=== PATIENT | female | born 1985 | race Caucasian/White ===

== ENCOUNTER 2016-11-19 19:57 | Emergency (ER) | payer OTHER ==
[2016-11-19 20:05] VITALS: BP 118/80
--- NOTE | 2016-11-19 20:08 | ED Physician Documentation ---
PD HPI LOWER EXT INJURY - Stated complaint Stated Complaint: LT ANKLE/LEG PX - Chief complaint Chief Complaint: Ext Problem - History obtained from History obtained from: Patient - History of Present Illness PD HPI LOW EXT INJURY LOCATION: Left, Ankle Type of injury: Twist Where injury occurred: Home Timing - onset: Enter time (19:00), Today Timing - details: Abrupt onset Pain level now: 6 Improved by: Rest Worsened by: Moving, Palpating Associated symptoms: Swelling Similar symptoms before: Has not had sx before Recently seen: Not recently seen - Additional information Additional information: c/o left ankle pain, sudden onset 7 PM tonight when she tripped in her garage. Exacerbated with palpation, weight-bearing Review of Systems Musculoskeletal: reports: Joint pain (left ankle), Joint swelling, Pain with weight bearing Neurologic: denies: Focal weakness, Numbness PD PAST MEDICAL HISTORY - Past Medical History Past Medical History: No - Past Surgical History Past Surgical History: No - Present Medications Home Medications: Ambulatory Orders Medication Instructions Recorded Confirmed HYDROcod/ACETAM 5/325 [[place] 5/325] 1 - 2 ea PO Q6H PRN #15 tablet 11/19/16 Loratadine [Claritin] 10 mg DAILY PRN 11/19/16 11/19/16 Multivitamin [Multivitamins] 1 tab DAILY 11/19/16 11/19/16 - Allergies Allergies/Adverse Reactions: Allergies Allergy/AdvReac Type Severity Reaction Status Date / Time No Known Drug Allergies Allergy Verified 11/19/16 20:06 - Social History Does the pt smoke?: No Smoking Status: Never smoker PD ED PE NORMAL - Vitals Vital signs reviewed: Yes - General General: Alert and oriented X 3, No acute distress, Well developed/nourished - Neuro Neuro: No motor deficit, No sensory deficit PD ED PE EXPANDED - Extremities Extremities: Tenderness, Limited ROM, Swelling, Bruising, Left ankle ( predominantly lateral malleolus) Results - Vitals Vitals: Vital Signs - 24 hr 11/19/16 20:00 Temperature 37.1 C Heart Rate 100 Respiratory 18 Rate Blood Pressure 118/80 O2 Saturation 99 Oxygen O2 Source Room air - Rads (name of study) left ankle xrays Radiology: Prelim report reviewed, See rad report Procedures - Splint (location) Lower extremity left Splint applied by: Tech Type of splint: Ankle airsplint Other: Patient tolerated well, No complications, Neurovascular intact, Good alignment, Crutches provided PD MEDICAL DECISION MAKING - ED course Complexity details: reviewed results, re-evaluated patient, considered differential, d/w patient Departure - Departure Disposition: 01 Home, Self Care Clinical Impression: Ankle sprain Condition: Good Instructions: ED Sprain Ankle W X Ray, ED Crutch Walking Follow-Up: [facility] LUCIA [Primary Care Provider] - Dario Marti MD [Provider Admit Priv/Credential] - Prescriptions: HYDROcod/ACETAM 5/325 [[place] 5/325] 1 - 2 ea PO Q6H PRN #15 tablet PRN Reason: Pain Discharge Date/Time: 11/19/16 21:40
--- NOTE | 2016-11-19 21:15 | XRAY Preliminary Report ---
Exam: XR Ankle 3 View LT IMPRESSION: Moderately lateral soft tissue swelling without acute osseous abnormality demonstrated. [facility] SITE ID: [id number]
--- NOTE | 2016-11-19 21:18 | XRAY Report ---
EXAM: LEFT ANKLE RADIOGRAPHY EXAM DATE: 11/19/2016 08:46 PM. CLINICAL HISTORY: Injury, swelling. COMPARISON: None. TECHNIQUE: 3 views. FINDINGS: Bones: No acute displaced fractures or suspicious bony lesion. Joints: No subluxations. Soft Tissues: Moderate lateral soft tissue swelling. IMPRESSION: Moderately lateral soft tissue swelling without acute osseous abnormality demonstrated. [facility] Referring Provider Line: [phone] SITE ID: [id number]
[2016-11-19] MEDS ORDERED: HYDROcod/ACETAM 5/325 MG TABLET PO STA (21:27)
[2016-11-19] MEDS ORDERED: HYDROcod/ACETAM 5/325 MG TABLET ONE (21:28)
== END 2016-11-19 21:40 | disposition home or self-care (01) ==
LOC: ED 19:57
DX: S93.402A Sprain of unspecified ligament of left ankle, initial encounter (principal); W01.0XXA Fall on same level from slipping, tripping and stumbling without subsequent striking against object, initial encounter; Y92.008 Other place in unspecified non-institutional (private) residence as the place of occurrence of the external cause
CPT/HCPCS: 73610; 99283; A9270

== ENCOUNTER 2017-09-03 21:19 | Emergency (ER) | payer OTHER ==
[2017-09-03] MEDS ORDERED: predniSONE 20 MG TABLET PO STA (21:48)
--- NOTE | 2017-09-03 21:51 | ED Physician Documentation ---
PD HPI URI - Stated complaint Stated Complaint: BILATERAL EAR PX - Chief complaint Chief Complaint: Heent - History obtained from History obtained from: Patient - History of Present Illness Timing - onset: Other (Sick for about 2 weeks with nasal congestion, sinus pressure, and on and off ear popping and pressure which is generally getting worse bilaterally. No fevers.) Review of Systems Constitutional: denies: Fever, Chills, Fatigue Ears: reports: Ear pain. denies: Loss of hearing, Drainage/discharge Nose: reports: Rhinorrhea / runny nose, Congestion, Sinus pressure / pain Throat: denies: Sore throat PD PAST MEDICAL HISTORY - Past Medical History Past Medical History: Yes GI: Other Other Past Medical History: Celiac disease - Past Surgical History Past Surgical History: No - Present Medications Home Medications: Ambulatory Orders Medication Instructions Recorded Confirmed HYDROcod/ACETAM 5/325 [[place] 5/325] 1 - 2 ea PO Q6H PRN #15 tablet 11/19/16 Loratadine [Claritin] 10 mg DAILY PRN 11/19/16 11/19/16 Multivitamin [Multivitamins] 1 tab DAILY 11/19/16 11/19/16 Amox/Clav 875/125 [Augmentin] 1 each PO Q12H #20 tablet 09/03/17 Guaifenesin/Pseudoephedrne HCl 1 each PO BID PRN #20 tab.er.12h 09/03/17 [Mucinex D ER 600-60 mg Tablet] predniSONE [Deltasone] 60 mg PO DAILY 5 Days tablet 09/03/17 - Allergies Allergies/Adverse Reactions: Allergies Allergy/AdvReac Type Severity Reaction Status Date / Time gluten Allergy Cramps Verified 09/03/17 21:34 latex Allergy Rash Verified 09/03/17 21:37 pineapple Allergy Anaphylaxis Verified 09/03/17 21:35 coconut AdvReac Rash Verified 09/03/17 21:36 - Social History Does the pt smoke?: No Smoking Status: Never smoker Does the pt drink ETOH?: Yes Does the pt have substance abuse?: No - Immunizations Immunizations are current?: Yes PD ED PE NORMAL - Vitals Vital signs reviewed: Yes - General General: Alert and oriented X 3, No acute distress - HEENT HEENT: PERRL, EOMI, Ears normal, Moist mucous membranes, Pharynx benign - Neck Neck: Supple, no meningeal sign, No bony TTP - Cardiac Cardiac: RRR, No murmur - Respiratory Respiratory: No respiratory distress, Clear bilaterally - Abdomen Abdomen: Non tender - Derm Derm: No rash - Neuro Neuro: Alert and oriented X 3, Normal speech Results - Vitals Vitals: Vital Signs - 24 hr 09/03/17 21:29 Temperature 36.6 C Heart Rate 74 Respiratory 18 Rate Blood Pressure 136/95 H O2 Saturation 100 Oxygen O2 Source Room air PD MEDICAL DECISION MAKING - ED course ED course: TMs are normal, seems like a sinus infection but she really does not have any physical findings so [id number] prescription of for antibiotics was given. Departure - Departure Disposition: Home, Self Care Clinical Impression: Sinusitis Qualifiers: Sinusitis location: maxillary Chronicity: acute Recurrence: non-recurrent Qualified Code(s): J01.00 - Acute maxillary sinusitis, unspecified Condition: Good Record reviewed to determine appropriate education?: Yes Instructions: ED Sinusitis Abx Tx Prescriptions: Amox/Clav 875/125 [Augmentin] 1 each PO Q12H #20 tablet Guaifenesin/Pseudoephedrne HCl [Mucinex D ER 600-60 mg Tablet] 1 each PO BID PRN #20 tab.er.12h PRN Reason: congestion predniSONE [Deltasone] 60 mg PO DAILY 5 Days tablet Comments: You can start the antibiotics in a few days if not improved with the steroids and decongestants. Follow-up with your doctor in 1 week regardless. Return if worse. Your blood pressure was elevated today on check into the emergency department. This does not mean that you have hypertension, it is a common phenomenon to come to the emergency department and have elevated blood pressure. I recommend that you see your primary care physician within the week to have it rechecked when you are feeling better.
[2017-09-03 22:23] VITALS: BP 132/92
[2017-09-03] MEDS ORDERED: predniSONE 20 MG TABLET ONE (23:06)
== END 2017-09-03 22:59 | disposition home or self-care (01) ==
LOC: ED 21:19
DX: J01.00 Acute maxillary sinusitis, unspecified (principal); R03.0 Elevated blood-pressure reading, without diagnosis of hypertension
CPT/HCPCS: 99283; J7512

== ENCOUNTER 2017-09-23 16:56 | Emergency (ER) | payer OTHER ==
[2017-09-23 18:12] LABS: BILIRUBIN,URINE NEGATIVE (NEGATIVE); GLUCOSE, URINE (UA) NEGATIVE (NEGATIVE); KETONES,URINE (UA) NEGATIVE (NEGATIVE); LEUKOCYTE ESTERASE, URINE NEGATIVE (NEGATIVE); NITRITE,URINE NEGATIVE (NEGATIVE); OCCULT BLOOD,URINE MODERATE (NEGATIVE); PROTEIN,URINE NEGATIVE (NEGATIVE); UROBILINOGEN,URINE 0.2 (NORMAL) E.U./dL (NORMAL)
--- NOTE | 2017-09-23 18:48 | ED Physician Documentation ---
PD HPI HEAD INJURY - Stated complaint Stated Complaint: HD PX - Chief complaint Chief Complaint: Neuro - History obtained from History obtained from: Patient - History of Present Illness Mechanism of head injury: Other (Hit in head by a soccer ball, left frontal area last night with persistent and severe headaches. No loss of consciousness. Recently had a sinus infection and thinks that might be flaring up to because of the facial pressure. No other injuries. No vomiting.) Review of Systems Constitutional: denies: Fever, Chills GI: denies: Abdominal Pain, Nausea : reports: LMP (current). denies: Now EGA PD PAST MEDICAL HISTORY - Past Medical History GI: Other - Past Surgical History Past Surgical History: No - Present Medications Home Medications: Ambulatory Orders Medication Instructions Recorded Confirmed HYDROcod/ACETAM 5/325 [[place] 5/325] 1 - 2 ea PO Q6H PRN #15 tablet 11/19/16 Loratadine [Claritin] 10 mg DAILY PRN 11/19/16 11/19/16 Multivitamin [Multivitamins] 1 tab DAILY 11/19/16 11/19/16 Amox/Clav 875/125 [Augmentin] 1 each PO Q12H #20 tablet 09/03/17 Guaifenesin/Pseudoephedrne HCl 1 each PO BID PRN #20 tab.er.12h 09/03/17 [Mucinex D ER 600-60 mg Tablet] predniSONE [Deltasone] 60 mg PO DAILY 5 Days tablet 09/03/17 HYDROcod/ACETAM 5/325 [[place] 5/325] 1 - 2 ea PO Q6H PRN #10 tablet 09/23/17 - Allergies Allergies/Adverse Reactions: Allergies Allergy/AdvReac Type Severity Reaction Status Date / Time gluten Allergy Cramps Verified 09/03/17 21:34 latex Allergy Rash Verified 09/03/17 21:37 pineapple Allergy Anaphylaxis Verified 09/03/17 21:35 coconut AdvReac Rash Verified 09/03/17 21:36 - Social History Does the pt smoke?: No Smoking Status: Never smoker Does the pt drink ETOH?: Yes Does the pt have substance abuse?: No - Immunizations Immunizations are current?: Yes PD ED PE NORMAL - Vitals Vital signs reviewed: Yes - General General: Alert and oriented X 3, No acute distress - HEENT HEENT: PERRL, EOMI, Ears normal, Pharynx benign - Neck Neck: Supple, no meningeal sign, No bony TTP - Neuro Neuro: Alert and oriented X 3, Normal speech - Psych Psych: Normal mood, Normal affect Results - Vitals Vitals: Vital Signs - 24 hr 09/23/17 17:21 Temperature 35.9 C L Heart Rate 70 Respiratory 20 Rate Blood Pressure 121/73 O2 Saturation 100 Oxygen O2 Source Room air - Labs Labs: Laboratory Tests 09/23/17 17:55 Urine Color YELLOW Urine Clarity HAZY Urine pH 6.0 Ur Specific [place] >=1.030 H Urine Protein NEGATIVE Urine Glucose (UA) NEGATIVE Urine Ketones NEGATIVE Urine Occult Blood MODERATE H Urine Nitrite NEGATIVE Urine Bilirubin NEGATIVE Urine Urobilinogen 0.2 (NORMAL) Ur Leukocyte Esterase NEGATIVE Urine RBC 6-10 H Urine WBC 0-3 Ur Squamous Epith Cells MOD Squamous H Urine Bacteria Few Ur Microscopic Review INDICATED Urine Culture Comments NOT INDICATED Urine HCG, Qual NEGATIVE Departure - Departure Disposition: 01 Home, Self Care Clinical Impression: Concussion Qualifiers: Encounter type: initial encounter Loss of consciousness presence/duration: without LOC Qualified Code(s): S06.0X0A - Concussion without loss of consciousness, initial encounter Condition: Good Record reviewed to determine appropriate education?: Yes Instructions: ED Head Injury Closed Prescriptions: HYDROcod/ACETAM 5/325 [[place] 5/325] 1 - 2 ea PO Q6H PRN #10 tablet PRN Reason: Pain Comments: Call your doctor to arrange a follow-up appointment, make the next available appointment. In the interim, return anytime if worse or if new symptoms develop.
[2017-09-23 18:59] LABS: CLARITY,URINE HAZY (CLEAR); HCG UR QUAL NEGATIVE
[2017-09-23 19:00] LABS: BACTERIA,URINE Few /HPF (None Seen); SQUAMOUS EPITHELIAL CELL,UR MOD Squamous (<= Few)
--- NOTE | 2017-09-23 19:34 | CT Preliminary Report ---
Exam: CT HEAD W/O IMPRESSION: Normal head CT. [facility] SITE ID: [id number]
[2017-09-23 20:07] VITALS: BP 122/84
--- NOTE | 2017-09-23 20:16 | CT Report ---
EXAM: CT HEAD EXAM DATE: 09/23/2017 07:05 PM. CLINICAL HISTORY: Headache after injury. COMPARISON: None. TECHNIQUE: Multiaxial CT images were obtained from the foramen magnum to the vertex. Reformats: Coron al. IV contrast: None. In accordance with CT protocol optimization, one or more of the following dose reduction techniques w ere utilized for this exam: automated exposure control, adjustment of mA and/or KV based on patient s ize, or use of iterative reconstructive technique. FINDINGS: Parenchyma: No intraparenchymal hemorrhage. No evidence of mass, midline shift, or CT findings of inf arction. Hu-white differentiation is distinct. Extraaxial Spaces: Normal for age. No subdural or epidural collections identified. Ventricles: Normal in size and position. Sinuses and Orbits: Imaged paranasal sinuses, orbits, and mastoids show no significant abnormality. Bones: No evidence of fracture or calvarial defect. Other: None. IMPRESSION: Normal head CT. [facility] Referring Provider Line: [phone] SITE ID: [id number]
== END 2017-09-23 20:07 | disposition home or self-care (01) ==
LOC: ED 16:56
DX: S06.0X0A Concussion without loss of consciousness, initial encounter (principal); W21.02XA Struck by soccer ball, initial encounter; Y93.66 Activity, soccer
CPT/HCPCS: 70450; 81001; 81003; 81025; 87086; 99283

== ENCOUNTER 2018-01-12 21:49 | Emergency (ER) | payer OTHER ==
[2018-01-12] MEDS ORDERED: BUPIVACAINE 0.5% PF 10 ML VIAL SUBQ STA (22:12)
--- NOTE | 2018-01-12 22:59 | ED Physician Documentation ---
PD HPI HEADACHE - Stated complaint Stated Complaint: NUMBNESS ON LT SIDE OF FACE/MIGRAINE - Chief complaint Chief Complaint: Neuro - History obtained from History obtained from: Patient, Family (daughter) - History of Present Illness Timing - onset: Chronic Quality: Throbbing, Aching Associated symptoms: Nausea. No: Fever, Stiff neck, Vomiting, Weakness, Syncope , Seizure, Vision changes - Additional information Additional information: Patient is a 32-year-old female who presents to the emergency department with a headache for the past month. She states that she has had headaches like this every 3-4 months for the past several years. She states that she has been prescribed medications by her doctor but does not know the name of them. Today she developed tingling on the left upper lip. Occasionally there is tingling on the left side of the face as well. She is photophobic. Also worse with sounds. Nothing makes the headache better. She has had nausea but no vomiting she states she has been diagnosed with tension headaches. 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 Other Past Medical History: Ciliac disease - Past Surgical History Past Surgical History: No - Present Medications Home Medications: Ambulatory Orders Medication Instructions Recorded Confirmed HYDROcod/ACETAM 5/325 [[place] 5/325] 1 - 2 ea PO Q6H PRN #15 tablet 11/19/16 Loratadine [Claritin] 10 mg DAILY PRN 11/19/16 11/19/16 Multivitamin [Multivitamins] 1 tab DAILY 11/19/16 11/19/16 Amox/Clav 875/125 [Augmentin] 1 each PO Q12H #20 tablet 09/03/17 Guaifenesin/Pseudoephedrne HCl 1 each PO BID PRN #20 tab.er.12h 09/03/17 [Mucinex D ER 600-60 mg Tablet] predniSONE [Deltasone] 60 mg PO DAILY 5 Days tablet 09/03/17 HYDROcod/ACETAM 5/325 [[place] 5/325] 1 - 2 ea PO Q6H PRN #10 tablet 09/23/17 SUMAtriptan [Sumatriptan] 20 mg NS ONCE PRN #7 spray 01/12/18 - Allergies Allergies/Adverse Reactions: Allergies Allergy/AdvReac Type Severity Reaction Status Date / Time gluten Allergy Cramps Verified 01/12/18 22:03 latex Allergy Rash Verified 01/12/18 22:03 pineapple Allergy Anaphylaxis Verified 01/12/18 22:03 coconut AdvReac Rash Verified 01/12/18 22:03 - Social History Does the pt smoke?: No Smoking Status: Never smoker Does the pt drink ETOH?: Yes Does the pt have substance abuse?: No - Immunizations Immunizations are current?: Yes - POLST Patient has POLST: No PD ED PE NORMAL - Vitals Vital signs reviewed: Yes - General General: Alert and oriented X 3, No acute distress, Well developed/nourished - HEENT HEENT: PERRL (Positive photophobia), Ears normal, Moist mucous membranes, Pharynx benign - Neck Neck: Supple, no meningeal sign, No bony TTP, No JVD, No bruit - Cardiac Cardiac: RRR, Strong equal pulses - Respiratory Respiratory: No respiratory distress, Clear bilaterally - Back Back: No spinal TTP - Derm Derm: Warm and dry, No rash - Extremities Extremities: No edema - Neuro Neuro: Alert and oriented X 3, green prize packer 2-12 intact, No motor deficit, No sensory deficit, Normal speech, Other (NIHSS 0) Eye Opening: Spontaneous Motor: Obeys Commands Verbal: Oriented GCS Score: 15 - Psych Psych: Normal mood, Normal affect Results - Vitals Vitals: Vital Signs - 24 hr 01/12/18 01/12/18 21:52 23:04 Temperature 36.3 C L 36.5 C Heart Rate 76 63 Respiratory 16 16 Rate Blood Pressure 131/91 H 126/79 O2 Saturation 100 100 Oxygen O2 Source Room air Procedures - General procedure General procedure: Greater occipital nerve block - The greater occipital nerve was located by landmarks at the occipital area of the skull. 2 mL's of 0.5% Marcaine were infiltrated on each side. Patient tolerated well. Excellent anesthesia achieved. No complications Sphenopalatine ganglion block - 0.5 mL's of 0.5% Marcaine were atomized each nare and the patient was maintained in a sniffing position for several minutes. Anesthesia achieved and patient tolerated well. No complications PD MEDICAL DECISION MAKING - ED course Complexity details: reviewed results, considered differential, d/w patient ED course: Patient is a 32-year-old female who presents to the emergency department with a chronic headache. Sounds as if she is actually suffering from chronic migraines versus cluster headaches. We discussed several treatment options in the emergency department including IV medications, this is what she is normally had in the past. However she opted to attempt an occipital nerve block and a sphenopalatine ganglion block. These were performed and her headache resolved. Tolerated very well. Photophobia resolved, tingling on the face resolved. I think she would likely be a candidate for regular nerve blocks likely with neurology. Possibly with Botox versus long-acting anesthetics and steroids. Patient counseled regarding signs and symptoms for which I believe and urgent re -evaluation would be necessary. Patient with good understanding of and agreement to plan and is comfortable going home at this time This document was made in part using voice recognition software. While efforts are made to proofread this document, sound alike and grammatical errors may occur. - Sepsis Event Vital Signs: Vital Signs - 24 hr 01/12/18 01/12/18 21:52 23:04 Temperature 36.3 C L 36.5 C Heart Rate 76 63 Respiratory 16 16 Rate Blood Pressure 131/91 H 126/79 O2 Saturation 100 100 Oxygen O2 Source Room air Departure - Departure Disposition: 01 Home, Self Care Clinical Impression: Cephalalgia Qualifiers: Headache type: unspecified Headache chronicity pattern: chronic headache Intractability: not intractable Qualified Code(s): R51 - Headache Condition: Good Instructions: ED Cephalgia Unspecified [facility] - Within 1 week Prescriptions: SUMAtriptan [Sumatriptan] 20 mg NS ONCE PRN #7 spray PRN Reason: headache Comments: Return if you worsen. You should follow-up with her doctor to discuss a referral to neurology for potential Botox injections in your occipital nerve. You responded very well to an occipital nerve block tonight as well as a sphenopalatine ganglion block. This should last for several hours tonight and hopefully will break the cycle of your headaches. You may be suffering from cluster headaches versus tension headaches versus chronic migraines. A neurologist will be better able to differentiate these headaches Discharge Date/Time: 01/12/18 23:05
[2018-01-12 23:05] VITALS: BP 126/79
== END 2018-01-12 23:05 | disposition home or self-care (01) ==
LOC: ED 21:49
DX: R51 Headache (principal)
CPT/HCPCS: 64405; 99283

== ENCOUNTER 2018-07-29 16:50 | Emergency (ER) | payer OTHER ==
[2018-07-29 17:29] LABS: BILIRUBIN,URINE NEGATIVE (NEGATIVE); GLUCOSE, URINE (UA) NEGATIVE (NEGATIVE); KETONES,URINE (UA) NEGATIVE (NEGATIVE); LEUKOCYTE ESTERASE, URINE MODERATE (NEGATIVE); NITRITE,URINE NEGATIVE (NEGATIVE); OCCULT BLOOD,URINE TRACE-LYSE (NEGATIVE); PROTEIN,URINE NEGATIVE (NEGATIVE); UROBILINOGEN,URINE 0.2 (NORMAL) E.U./dL (NORMAL)
[2018-07-29 17:36] LABS: CLARITY,URINE CLEAR (CLEAR); HCG UR QUAL NEGATIVE
[2018-07-29 17:41] LABS: BACTERIA,URINE None Seen /HPF (None Seen); RBC,URINE 0-5 /HPF (0-5); SQUAMOUS EPITHELIAL CELL,UR RARE Squamous (<= Few)
[2018-07-29] MEDS ORDERED: PHENAZOPYRIDINE 100 MG TABLET PO STA (17:51)
[2018-07-29] MEDS ORDERED: NITROFURANTOIN MACRO 100 MG CAPSULE PO STA (17:51)
--- NOTE | 2018-07-29 17:55 | ED Physician Documentation ---
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 - Past Surgical History Past Surgical History: No - Present Medications Home Medications: Ambulatory Orders Medication Instructions Recorded Confirmed HYDROcod/ACETAM 5/325 [[place] 5/325] 1 - 2 ea PO Q6H PRN #15 tablet 11/19/16 Loratadine [Claritin] 10 mg DAILY PRN 11/19/16 11/19/16 Multivitamin [Multivitamins] 1 tab DAILY 11/19/16 11/19/16 Amox/Clav 875/125 [Augmentin] 1 each PO Q12H #20 tablet 09/03/17 Guaifenesin/Pseudoephedrne HCl 1 each PO BID PRN #20 tab.er.12h 09/03/17 [Mucinex D ER 600-60 mg Tablet] predniSONE [Deltasone] 60 mg PO DAILY 5 Days tablet 09/03/17 HYDROcod/ACETAM 5/325 [[place] 5/325] 1 - 2 ea PO Q6H PRN #10 tablet 09/23/17 SUMAtriptan [Sumatriptan] 20 mg NS ONCE PRN #7 spray 01/12/18 Nitrofurantoin Monohyd/M-Cryst 100 mg PO BID #10 capsule 07/29/18 [Macrobid 100 mg Capsule] Phenazopyridine HCl [Pyridium] 200 mg PO TID PRN #6 tablet 07/29/18 - Allergies Allergies/Adverse Reactions: Allergies Allergy/AdvReac Type Severity Reaction Status Date / Time gluten Allergy Cramps Verified 07/29/18 17:04 latex Allergy Rash Verified 07/29/18 17:04 pineapple Allergy Anaphylaxis Verified 07/29/18 17:04 coconut AdvReac Rash Verified 07/29/18 17:04 - Social History Does the pt smoke?: No Smoking Status: Never smoker Does the pt drink ETOH?: Yes Does the pt have substance abuse?: No - Immunizations Immunizations are current?: Yes - POLST Patient has POLST: No PD ED PE NORMAL - Vitals Vital signs reviewed: Yes - General General: Alert and oriented X 3, No acute distress - Abdomen Abdomen: Normal bowel sounds, Soft, Non tender - Back Back: No CVA TTP - Neuro Neuro: Alert and oriented X 3, Normal speech Results - Vitals Vitals: Vital Signs - 24 hr 07/29/18 17:03 Temperature 35.6 C L Heart Rate 83 Respiratory 14 Rate Blood Pressure 123/83 H O2 Saturation 100 Oxygen O2 Source Room air - Labs Labs: Laboratory Tests 07/29/18 17:24 Urine Color YELLOW Urine Clarity CLEAR Urine pH 6.0 Ur Specific [place] 1.015 Urine Protein NEGATIVE Urine Glucose (UA) NEGATIVE Urine Ketones NEGATIVE Urine Occult Blood TRACE-LYSE Urine Nitrite NEGATIVE Urine Bilirubin NEGATIVE Urine Urobilinogen 0.2 (NORMAL) Ur Leukocyte Esterase MODERATE H Urine RBC 0-5 Urine WBC 6-10 H Ur Squamous Epith Cells RARE Squamous Urine Bacteria None Seen Ur Microscopic Review INDICATED Urine Culture Comments INDICATED Urine HCG, Qual NEGATIVE Departure - Departure Disposition: Home, Self Care Clinical Impression: Cystitis Condition: Good Record reviewed to determine appropriate education?: Yes Instructions: ED UTI Cystitis Female Prescriptions: Nitrofurantoin Monohyd/M-Cryst [Macrobid 100 mg Capsule] 100 mg PO BID #10 capsule Phenazopyridine HCl [Pyridium] 200 mg PO TID PRN #6 tablet PRN Reason: dysuria Comments: We will culture your urine, the results should be done in 48-72 hours. If an antibiotic change is necessary we will call you. Return if worse in the meantime, especially if you develop increasing flank pain, fevers, or cannot keep down the medication.
[2018-07-29 18:04] VITALS: BP 126/75
== END 2018-07-29 18:03 | disposition home or self-care (01) ==
LOC: ED 16:50
DX: N30.90 Cystitis, unspecified without hematuria (principal)
CPT/HCPCS: 81001; 81025; 87086; 99283; A9270; 81003

== ENCOUNTER 2018-11-16 10:36 | Emergency (ER) | payer OTHER ==
[2018-11-16 10:43] VITALS: BP 131/94
--- NOTE | 2018-11-16 10:45 | ED Physician Documentation ---
PD HPI LOWER EXT INJURY - Stated complaint Stated Complaint: ANKLE INJURY - Chief complaint Chief Complaint: Ext Problem - History obtained from History obtained from: Patient - History of Present Illness PD HPI LOW EXT INJURY LOCATION: Right, Foot, Toe (near base of great toe.) Type of injury: Twist (she was at [employer] and bounded and twisted/planted hard on foot, with pain near base of great toe that has continue, worse with walking on ball/toes of foot.) Where injury occurred: Other ([employer]) Timing - onset: Yesterday Timing - details: Abrupt onset, Still present Worsened by: Moving, Palpating, Other (stepping flat footed, has to walk on heel to be more comfortable.) Associated symptoms: Swelling. No: Weakness, Numbness, Discolored Similar symptoms before: Has not had sx before Recently seen: Not recently seen Review of Systems Skin: denies: Abrasion (s), Laceration (s) Neurologic: denies: Focal weakness, Numbness PD PAST MEDICAL HISTORY - Past Medical History Respiratory: Asthma Neuro: Migraines GI: Other RELEASE OF INFORMATION SPECIALIST: Ovarian cysts - Past Surgical History Past Surgical History: No - Present Medications Home Medications: Ambulatory Orders Medication Instructions Recorded Confirmed Loratadine [Claritin] 10 mg DAILY PRN 11/19/16 11/19/16 Multivitamin [Multivitamins] 1 tab DAILY 11/19/16 11/19/16 Amox/Clav 875/125 [Augmentin] 1 each PO Q12H #20 tablet 09/03/17 Guaifenesin/Pseudoephedrne HCl 1 each PO BID PRN #20 tab.er.12h 09/03/17 [Mucinex D ER 600-60 mg Tablet] SUMAtriptan [Sumatriptan] 20 mg NS ONCE PRN #7 spray 01/12/18 - Allergies Allergies/Adverse Reactions: Allergies Allergy/AdvReac Type Severity Reaction Status Date / Time gluten Allergy Cramps Verified 11/16/18 10:43 latex Allergy Rash Verified 11/16/18 10:43 pineapple Allergy Anaphylaxis Verified 11/16/18 10:43 coconut AdvReac Rash Verified 11/16/18 10:43 - Social History Does the pt smoke?: No Smoking Status: Never smoker Does the pt drink ETOH?: Yes Does the pt have substance abuse?: No - Immunizations Immunizations are current?: Yes - POLST Patient has POLST: No PD ED PE NORMAL - Vitals Vital signs reviewed: Yes - General General: Alert and oriented X 3, No acute distress, Well developed/nourished - Derm Derm: Normal color, Warm and dry - Extremities Extremities: Other (right foot at first MT and toward base of great toe, with some soft tissue swelling, no ecchymosis. Tender to the touch. No abrasions nor lacerations. Good color and cap refill to the toes. ) - Neuro Neuro: Alert and oriented X 3, No motor deficit, No sensory deficit Results - Vitals Vitals: Vital Signs - 24 hr 11/16/18 10:41 Temperature 36.7 C Heart Rate 80 Respiratory 17 Rate Blood Pressure 131/94 H O2 Saturation 99 Oxygen O2 Source Room air - Rads (name of study) right foot Radiology: Prelim report reviewed (soft tissue swelling. No fractures nor dislocations. ), EMP read contemporaneously, See rad report PD MEDICAL DECISION MAKING - ED course Complexity details: reviewed results, considered differential, d/w patient Departure - Departure Disposition: 01 Home, Self Care Clinical Impression: Right foot sprain Qualifiers: Encounter type: initial encounter Qualified Code(s): S93.601A - Unspecified sprain of right foot, initial encounter Condition: Stable Record reviewed to determine appropriate education?: Yes Instructions: ED Sprain Foot Follow-Up: RABIA LUCIA [Primary Care Provider] - Comments: Use a firm soled shoe to help reduce motion through the foot and therefore less symptoms. Ibuprofen or naproxen as needed for pain. Add Tylenol if needed. Anticipate soreness for several days to week or so. Recheck if not improved over that timeframe. Discharge Date/Time: 11/16/18 11:56
[2018-11-16] MEDS ORDERED: ACETAMINOPHEN 325 MG TABLET PO STA (10:59)
[2018-11-16] MEDS ORDERED: NAPROXEN 250 MG TABLET PO STA (10:59)
--- NOTE | 2018-11-16 11:44 | XRAY Report ---
Reason: rolled/landed hard on foot yesterday Procedure Date: 11/16/2018 Accession Number: [id number] / [id number] Procedure: XR - Foot 3 View RT CPT Code: FULL RESULT: EXAM: RIGHT FOOT RADIOGRAPHY EXAM DATE: 11/16/2018 11:34 AM. CLINICAL HISTORY: Rolled/landed hard on foot yesterday. Patient reports missing a jump and landing hard on the foot resulting in medial right foot pain. COMPARISON: None. TECHNIQUE: 3 views. FINDINGS: Bones: Normal. No fractures or bone lesions. Joints: Normal. No subluxations. Soft Tissues: There is mild soft tissue swelling of the anterior midfoot and forefoot without soft tissue gas or foreign body detected. IMPRESSION: Soft tissue swelling without fracture or dislocation identified. RADIA
== END 2018-11-16 11:56 | disposition home or self-care (01) ==
LOC: ED 10:36
DX: S93.601A Unspecified sprain of right foot, initial encounter (principal); X50.1XXA Overexertion from prolonged static or awkward postures, initial encounter; Y93.44 Activity, trampolining; Y92.830 Public park as the place of occurrence of the external cause
CPT/HCPCS: 73630; 99282; 99283; A9270

== ENCOUNTER 2018-11-26 11:39 | Emergency (ER) | payer OTHER ==
[2018-11-26 11:47] VITALS: BP 146/88
--- NOTE | 2018-11-26 12:49 | ED Physician Documentation ---
PD HPI WOUND RECHECK - Stated complaint Stated Complaint: RASH ON BACK - Chief complaint Chief Complaint: Wound - Histroy obtained from History obtained from: Patient - History of Present Illness Location: Back (Several days of a rash on the left side of the back but initially she thought was a spider bite. There is a burning and shocking pain and now radiates to the left upper quadrant of the abdomen. She is been a little achy with a headache but no fevers or chills. Appetite is poor.) Review of Systems Constitutional: reports: Myalgias, Fatigue. 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 CONTROL SPECIALIST: Ovarian cysts - Past Surgical History Past Surgical History: No - Present Medications Home Medications: Ambulatory Orders Medication Instructions Recorded Confirmed Loratadine [Claritin] 10 mg DAILY PRN 11/19/16 11/26/18 Multivitamin [Multivitamins] 1 tab DAILY 11/19/16 11/26/18 SUMAtriptan [Sumatriptan] 20 mg NS ONCE PRN #7 spray 01/12/18 11/26/18 Acyclovir 800 mg PO 5XD #50 tablet 11/26/18 Hydrocodone/Acetaminophen 1 - 2 each PO Q6H PRN #14 tablet 11/26/18 [Hydrocodon-Acetaminophen 5-325] predniSONE [Deltasone] 20 mg PO [id number] #21 tab 11/26/18 - Allergies Allergies/Adverse Reactions: Allergies Allergy/AdvReac Type Severity Reaction Status Date / Time gluten Allergy Cramps Verified 11/26/18 11:47 latex Allergy Rash Verified 11/26/18 11:47 pineapple Allergy Anaphylaxis Verified 11/26/18 11:47 coconut AdvReac Rash Verified 11/26/18 11:47 - Social History Does the pt smoke?: No Smoking Status: Never smoker Does the pt drink ETOH?: Yes Does the pt have substance abuse?: No - Immunizations Immunizations are current?: Yes - POLST Patient has POLST: No PD ED PE NORMAL - Vitals Vital signs reviewed: Yes - General General: Alert and oriented X 3, No acute distress - Neck Neck: Supple, no meningeal sign, No bony TTP - Derm Derm: Other (Shingles on the left back, low thoracic spine radiating to the left upper quadrant) - Neuro Neuro: Alert and oriented X 3, Normal speech Results - Vitals Vitals: Vital Signs - 24 hr 11/26/18 11:45 Temperature 36.0 C L Heart Rate 80 Respiratory 16 Rate Blood Pressure 146/88 H O2 Saturation 97 Oxygen O2 Source Room air Departure - Departure Disposition: Home, Self Care Clinical Impression: Herpes zoster Qualifiers: Herpes zoster complications: without complications Qualified Code(s): B02.9 - Zoster without complications Condition: Good Record reviewed to determine appropriate education?: Yes Health Concerns: rash Plan of Treatment: antivirals, steroids, and pain medications for shingles/herpes zoster Care Goals: improvement Assessment: as above Instructions: ED Shingles Prescriptions: Acyclovir 800 mg PO 5XD #50 tablet Hydrocodone/Acetaminophen [Hydrocodon-Acetaminophen 5-325] 1 - 2 each PO Q6H PRN #14 tablet PRN Reason: pain predniSONE [Deltasone] 20 mg PO [id number] #21 tab Forms: Activity restrictions
== END 2018-11-26 12:51 | disposition home or self-care (01) ==
LOC: ED 11:39
DX: B02.9 Zoster without complications (principal)
CPT/HCPCS: 99283

== ENCOUNTER 2019-06-04 20:45 | Outpatient (CLI) | payer OTHER ==
[2019-06-04 21:04] LABS: BASOPHILS % (AUTO) 0.3 %; EOSINOPHILS # (AUTO) 0.2 10^3/uL (0.0-0.7); EOSINOPHILS % (AUTO) 1.9 %; HGB - HEMOGLOBIN 12.7 g/dL (12.0-16.0); LYMPHOCYTES # (AUTO) 2.1 10^3/uL (1.5-3.5); LYMPHOCYTES % (AUTO) 18.9 %; MEAN CORPUSCULAR HEMOGLOBIN 27.5 pg (27.0-31.0); MEAN CORPUSCULAR HGB CONC 31.9 g/dL (32.0-36.0); MEAN CORPUSCULAR VOLUME 86.3 fL (81.0-99.0); MEAN PLATELET VOLUME 11.3 fL (7.9-10.8); MONOCYTES # (AUTO) 0.6 10^3/uL (0.0-1.0); MONOCYTES % (AUTO) 5.8 %; NEUTROPHILS % (AUTO) 72.6 %; PLT - PLATELET COUNT 272 10^3/uL (130-450); RED BLOOD COUNT 4.61 10^6/uL (4.20-5.40); RED CELL DISTRIBUTION WIDTH 13.5 % (12.0-15.0)
[2019-06-04 21:27] LABS: HCG UR QUAL NEGATIVE
== END 2019-06-04 20:46 | disposition home or self-care (01) ==
LOC: LAB 20:45
PROVIDERS: ATTEND Obstetrics & Gynecology
DX: N94.6 Dysmenorrhea, unspecified (principal); Z01.818 Encounter for other preprocedural examination
CPT/HCPCS: 36415; 81025; 85025; 86850; 86900; 86901

== ENCOUNTER 2019-06-08 13:47 | Outpatient (CLI) | payer OTHER | END 2019-06-08 13:48 | disposition home or self-care (01) | LOC: LAB 13:47 | PROVIDERS: ATTEND Obstetrics & Gynecology | DX: N94.6 Dysmenorrhea, unspecified (principal); Z01.812 Encounter for preprocedural laboratory examination | CPT/HCPCS: 36415; 84030; 86850; 86900; 86901 ==

== ENCOUNTER 2019-06-09 06:12 | Inpatient (IN) | payer OTHER ==
[2019-06-09] MEDS ORDERED: CEFAZOLIN SODIUM IN 0.9 % NACL 2 GM/100 ML BAG IV ONE (06:23)
[2019-06-09] MEDS ORDERED: LACTATED RINGERS 1,000 ML IV ONE ×2 (06:31→09:02)
[2019-06-09 06:48] LABS: BILIRUBIN,URINE NEGATIVE (NEGATIVE); GLUCOSE, URINE (UA) NEGATIVE (NEGATIVE); KETONES,URINE (UA) NEGATIVE (NEGATIVE); LEUKOCYTE ESTERASE, URINE NEGATIVE (NEGATIVE); NITRITE,URINE NEGATIVE (NEGATIVE); OCCULT BLOOD,URINE TRACE-INTA (NEGATIVE); PROTEIN,URINE NEGATIVE (NEGATIVE); UROBILINOGEN,URINE 0.2 (NORMAL) E.U./dL (NORMAL)
[2019-06-09 07:02] LABS: CLARITY,URINE CLEAR (CLEAR); RBC,URINE 0-5 /HPF (0-5); SQUAMOUS EPITHELIAL CELL,UR MOD Squamous (<= Few)
[2019-06-09 07:03] LABS: BACTERIA,URINE Few /HPF (None Seen)
[2019-06-09] MEDS ORDERED: VASOPRESSIN 20 UNIT/ML VIAL ONE (07:03)
--- NOTE | 2019-06-09 07:25 | ANESTHESIA ---
Pre-Anesthesia VS, & Labs - Diagnosis Dysmenorrhea - Procedure Total vaginal hysterectomy Vital Signs: Temp Pulse Resp BP Pulse Ox 36.1 C L 85 16 142/90 H 100 06/09/19 06:33 06/09/19 06:33 06/09/19 06:33 06/09/19 06:33 06/09/19 06:33 Height 5 ft 3 in Weight (kg) 93 kg Body Mass Index 31.8 - NPO >8 hours - Is Patient ?: No - Lab Results Lab results reviewed: Yes Home Medications and Allergies Loratadine [Claritin] 10 mg DAILY PRN 11/19/16 Multivitamin [Multivitamins] 1 tab DAILY 11/19/16 Albuterol Sulfate [Albuterol Sulfate Hfa] 8.5 gm IH PRN PRN 05/24/19 Desogestrel-Ethinyl Estradiol [Reclipsen 28 Day Tablet] 1 each PO DAILY 05/24/19 Esomeprazole Magnesium [Nexium] 10 mg PO DAILY 06/06/19 Allergies/Adverse Reactions: Allergies Allergy/AdvReac Type Severity Reaction Status Date / Time gluten Allergy Cramps Verified 05/24/19 09:54 latex Allergy Rash Verified 05/24/19 09:54 pineapple Allergy Anaphylaxis Verified 05/24/19 09:54 coconut AdvReac Rash Verified 05/24/19 09:54 Anes History & Medical History - Anesthetic History Anesthesia Complications: reports: No previous complications Family history of Anesthesia Complications: Denies Family history of Malignant Hyperthermia: Denies - Medical History Cardiovascular: reports: None Pulmonary: reports: Asthma Gastrointestinal: reports: GERD Urinary: reports: None, Other Neuro: reports: Migraines, Other (tension headaches) Musculoskeletal: reports: None Endocrine/Autoimmune: reports: None Blood Disorders: reports: None Skin: reports: None Smoking Status: Former smoker (quit 7 years ago) Psychosocial: reports: No issues indicated Exam General: Alert, Oriented x3, Cooperative Dental: Dentures full Upper, Dentures full Lower Mouth Opening: Greater than 4 Fingerbreadths Neck Mobility: Normal Mallampati classification: II Thyromental Distance: greater than 6 cm Respiratory: Lungs clear Cardiovascular: Regular rate Neurological: Normal speech Mental/Cognitive Status: Alert/Oriented X3, Normal for patient Cognitive Status: Within normal limits Plan Anesthesia Type: General Consent for Procedure(s) Verified and Reviewed: Yes Code Status: Attempt Resuscitation ASA classification: 2-Mild systemic disease Is this case an emergency?: No
[2019-06-09] MEDS ORDERED: DEXAMETHASONE 4 MG/ML VIAL IVP ONE (07:44)
[2019-06-09] MEDS ORDERED: ACETAMINOPHEN 1,000 MG/100 ML 100 ML IV ONE (07:44)
[2019-06-09] MEDS ORDERED: PHENYLEPHRINE 10 MG/ML VIAL IV ONE (07:44)
[2019-06-09] MEDS ORDERED: ROCURONIUM 50 MG/5 ML VIAL IVP ONE (07:44)
[2019-06-09] MEDS ORDERED: MIDAZOLAM 2 MG/2 ML VIAL IVP ONE (07:44)
[2019-06-09] MEDS ORDERED: GLYCOPYRROLATE 1 MG/5 ML VIAL IVP ONE (07:44)
[2019-06-09] MEDS ORDERED: KETOROLAC 30 MG/ML VIAL IVP ONE (07:44)
[2019-06-09] MEDS ORDERED: ONDANSETRON 4 MG/2 ML VIAL IVP ONE (07:44)
[2019-06-09] MEDS ORDERED: fentaNYL 250 MCG/5 ML VIAL IVP ONE (07:44)
[2019-06-09] MEDS ORDERED: PROPOFOL 200 MG/20 ML VIAL IVP ONE (07:44)
[2019-06-09] MEDS ORDERED: diphenhydrAMINE INJ 50 MG/ML VIAL IVP ONE (07:44)
[2019-06-09] MEDS ORDERED: NEOSTIGMINE 1 MG/1 ML 10 ML MDV IVP ONE (07:44)
[2019-06-09] MEDS ORDERED: LIDOCAINE-MPF 2% 5 ML VIAL IM ONE (07:44)
[2019-06-09] MEDS ORDERED: ONDANSETRON 4 MG/2 ML VIAL IVP PRN (10:15)
--- NOTE | 2019-06-09 10:19 | OPERATIVE REPORT ---
Operative Report - General Admit Date: 06/09/19 Procedure Date: 06/09/19 Planned Procedure: total vaginal hysterectomy, bilateral salpingectomy, cystoscopy Pre-Op Diagnosis: dysmenorrhea Procedure Performed: total vaginal hysterectomy, cystoscopy Post Op Diagnosis: same as above - Procedure Note Primary Surgeon: Kandi Spain Secondary Surgeon: Galdino Nash Anesthesia Provider: Lori Waters Anesthesia Technique: General ET tube Pathology: uterus with cervix IV Fluids (mL): 1,200 Estimated Blood Loss (mL): 175 Urine Output (mL): 900 Indications: dysmenorrhea Findings: Small anteverted uterus, no mass. Ovaries and fallopian tubes not visualized. Cytoscopy with brisk bilateral ureteral jets and intact healthy mucosa. Complications: None - Other Other Information/Narrative: Procedure: After informed consent was assured, the patient was taken to the operating room. General anesthesia was obtained and found to be adequate. The patient was placed in the high dorsal lithotomy position using yellow fin stirrups. She was then prepped and draped in the usual sterile fashion and a surgical time out was performed. A short weighted speculum was placed into the vagina, and the cervix grasped with a double-toothed tenaculum. The cervix was then injected circumferentially with vasopressin 20 units diluted in 29 ml of normal saline. The cervix was circumferentially incised with the bovie. The posterior cul-de-sac was entered into sharply without difficulty using heavy Howe scissors. The cul-de-sac was digitally explored with no evidence of adhesion, and the long weighted speculum was replaced in the cul-de-sac after tagging the peritoneum to the edge. At this point, a Akash clamp was placed over the uterosacral ligaments on either side. These were then transected and suture ligated with #0 Vicryl. Hemostasis was assured. The anterior vaginal mucosa was sharply dissected off of the cervix until a plane was identified into the vesico-uterine space, which was sharply entered. A prabhakar catheter was placed draining clear yellow urine. A Milton retractor was inserted anteriorly for visualization. The cardinal ligaments, uterine arteries and broad ligament on each side were sequentially clamped, transected and ligated, with hemostasis assured at each pedicle. Next, the right cornua was clamped with Akash clamps, transected and the pedicle was secured with a free tie then suture ligated with excellent hemostasis. The left cornua was then clamped with a Akash clamp, transected and similarly secured. The specimen was passed off the field. Some bleeding was noted along the suture line on the right, this was grasped with a right angle clamp and secured with a running suture. Slight oozing from the left corner of the vaginal mucosa was also noted and this was secured with 2 figure of eight sutures. Hemostasis was achieved. The left and right ovaries were not visualized despite several attempts to sweep them into the surgical field; further attempts at visualizing and removing the fallopian tubes were abandoned. The vaginal cuff was closed horizontally with multiple [id number] stitches of #0 Vicryl including the underlying peritoneum in the stitches. Each side of the tagged uterosacral ligaments were incorporated into the repair for postoperative support. The cuff was copiously irrigated and noted to be hemostatic. All instruments were removed from the vagina. Cystoscopy was performed, and revealed an intact bladder with no evidence of injury and bilateral ureteral jets. A pelvic exam performed at the conclusion of the procedure revealed no retained foreign objects in the vagina. The patient was taken out of dorsal lithotomy position and awakened from general anesthesia without difficulty. The patient was taken to the PACU in stable condition. Sponge, lap, needle and instrument counts were correct times two. No complications were appreciated.
[2019-06-09] MEDS: KETOROLAC 30 MG/ML VIAL IVP SCH ×2 (11:15→17:13)
[2019-06-09] MEDS: LACTATED RINGERS 1,000 ML IV SCH (11:20)
[2019-06-09] MEDS: ACETAMINOPHEN 500 MG TABLET PO SCH ×2 (11:20→17:13)
[2019-06-09] MEDS: oxyCODONE 5 MG TABLET PO PRN ×3 (11:30→20:29)
--- NOTE | 2019-06-09 13:31 | PHARMACY PROGRESS NOTE ---
- Best Possible Medication History Admit Date and Time: 06/09/1912 Processed by: Nursing Medication History completed: Yes Patient Interview: Completed Secondary Source(s): Pharmacy records As the person ultimately responsible for medication therapy, providers are able to order a medication from an existing home medication list in [facility] via the "Reconcile Routine" prior to Confirmation of that medication by naval surface fire support planner. Such practice is discouraged except when the physician, in their clinical judgment, deems that a medical need exists for a medication without regard to previous use.
[2019-06-09] MEDS: DOCUSATE SODIUM 100 MG CAPSULE PO SCH (20:29)
[2019-06-10] MEDS: LACTATED RINGERS 1,000 ML IV SCH (00:37)
[2019-06-10] MEDS: KETOROLAC 30 MG/ML VIAL IVP SCH ×2 (00:41→05:45)
[2019-06-10] MEDS: ACETAMINOPHEN 500 MG TABLET PO SCH ×2 (00:41→05:45)
[2019-06-10] MEDS: oxyCODONE 5 MG TABLET PO PRN (03:42)
[2019-06-10 05:10] LABS: BASOPHILS % (AUTO) 0.3 %; EOSINOPHILS # (AUTO) 0.1 10^3/uL (0.0-0.7); EOSINOPHILS % (AUTO) 0.4 %; HGB - HEMOGLOBIN 11.7 g/dL (12.0-16.0); MEAN CORPUSCULAR HEMOGLOBIN 27.3 pg (27.0-31.0); MEAN CORPUSCULAR HGB CONC 32.1 g/dL (32.0-36.0); MEAN CORPUSCULAR VOLUME 84.8 fL (81.0-99.0); MEAN PLATELET VOLUME 11.6 fL (7.9-10.8); MONOCYTES # (AUTO) 0.8 10^3/uL (0.0-1.0); MONOCYTES % (AUTO) 6.9 %; NEUTROPHILS # (AUTO) 8.7 10^3/uL (1.5-6.6); NEUTROPHILS % (AUTO) 74.7 %; PLT - PLATELET COUNT 280 10^3/uL (130-450); RED BLOOD COUNT 4.29 10^6/uL (4.20-5.40); RED CELL DISTRIBUTION WIDTH 13.1 % (12.0-15.0); WHITE BLOOD COUNT 11.6 x10^3/uL (4.8-10.8)
--- NOTE | 2019-06-10 07:21 | PROVIDER PROGRESS NOTE ---
Subjective - Prog Note Date Prog Note Date: 06/10/19 Prog Note Time: 07:10 - Subjective Pt reports feeling: Improved Subjective: Doing well with no issues. Pain is well controlled with toradol, tylenol and roxicodone. Ambulating well. No vaginal discharge; noted some small spots of red in bowl when voiding, but no bleeding on pad. No n/v, tolerating regular diet, feels hungry this AM. Voiding spontaneously with good output overnight. Passing flatus. No BM yet, but feels pressure of needing a bowel movement. No other acute concerns. Objective - Vital Signs/Intake & Output Vital Signs: Vital Signs x48h Temp Pulse Resp BP Pulse Ox 06/10/19 04:00 98.1 F 72 16 130/68 98 06/10/19 00:00 99.3 F 80 17 138/65 H 98 Intake & Output: Intake & Output 06/07/19 06/08/19 06/09/19 06/10/19 23:59 23:59 23:59 23:59 Intake Total 2160 400 Output Total 2500 700 Balance -340 -300 - Objective General Appearance: positive: No acute distress Abdomen: positive: No distention (soft, appropriate tenderness across pelvis with no rebound or guarding. No skin lesions apart from excoriation around umbilicus, present prior to surgery.) Skin: positive: Color nml, No rash Extremities: positive: Non-tender - Lab Results Fish Bones: 06/10/19 04:20 Other Labs: Lab Results x24hrs 06/10/19 Range/Units 04:20 WBC 11.6 H (4.8-10.8) x10^3/uL RBC 4.29 (4.20-5.40) 10^6/uL Hgb 11.7 L (12.0-16.0) g/dL Hct 36.4 L (37.0-47.0) % MCV 84.8 (81.0-99.0) fL MCH 27.3 (27.0-31.0) pg MCHC 32.1 (32.0-36.0) g/dL RDW 13.1 (12.0-15.0) % Plt Count 280 (130-450) 10^3/uL MPV 11.6 H (7.9-10.8) fL Neut # (Auto) 8.7 H (1.5-6.6) 10^3/uL Lymph # (Auto) 2.0 (1.5-3.5) 10^3/uL Island # (Auto) 0.8 (0.0-1.0) 10^3/uL Eos # (Auto) 0.1 (0.0-0.7) 10^3/uL Baso # (Auto) 0.0 (0.0-0.1) 10^3/uL Absolute Nucleated RBC 0.00 x10^3/uL Nucleated RBC % 0.0 /100WBC Assessment/Plan - Problem List (1) Postoperative state Impression: 33 yo woman POD#1 s/p TVH, cystoscopy. Recovering well. VS wnl, UOP adequate. Hct 36 postop. Dispo: home today with follow up in clinic in 1 week. Rvwd anticipated recovery, reasons to seek care.
--- NOTE | 2019-06-10 07:27 | DISCHARGE SUMMARY ---
"Discharge Summary Admit Date: 06/09/19 Discharge Date: 06/10/19 Discharging Provider: Kandi Spain Code Status: Attempt Resuscitation Condition at Discharge: Good Discharge Disposition: 01 Home, Self Care - DIAGNOSES Admission Diagnoses: dysmenorrhea Discharge Diagnoses with Status of Each Condition: dysmenorrhea, s/p total vaginal hysterectomy - HPI History of Present Illness: 33 yo woman with dysmenorrhea desiring definitive management with hysterectomy. - CONSULTS | PROCEDURES Consultations: none Procedures: TVH, cystoscopy - HOSPITAL COURSE Hospital Course: Pt was admitted for planned surgery. Underwent uncomplicated TVH and cystoscopy. She remained afebrile throughout her stay. 12 hours postoperatively her prabhakar catheter was removed and she was able to void spontaneously. At the time of discharge she was ambulating, voiding, passing flatus, tolerating regular diet and pain was well controlled with oral medications. She was discharged home with close interval follow up. - ALLERGIES Allergies/Adverse Reactions: Allergies Allergy/AdvReac Type Severity Reaction Status Date / Time gluten Allergy Cramps Verified 05/24/19 09:54 latex Allergy Rash Verified 05/24/19 09:54 pineapple Allergy Anaphylaxis Verified 05/24/19 09:54 coconut AdvReac Rash Verified 05/24/19 09:54 - MEDICATIONS Home Medications: Ambulatory Orders Medication Instructions Recorded Confirmed Loratadine [Claritin] 10 mg DAILY PRN 11/19/16 06/09/19 Multivitamin [Multivitamins] 1 tab DAILY 11/19/16 06/08/19 Albuterol Sulfate [Albuterol 2 puffs INH Q4H PRN 05/24/19 06/09/19 Sulfate Hfa] Desogestrel-Ethinyl Estradiol 1 each PO DAILY 05/24/19 06/08/19 [Reclipsen 28 Day Tablet] Esomeprazole Magnesium [Nexium] 10 mg PO DAILY 06/06/19 06/09/19 Home Medications Other | Comments: 1. Ibuprofen 800 mg every 8 hours 2. Tylenol 975 mg every 6 hours 3. Roxicodone 5-10 mg every 6 hours as needed for pain 4. Surfak 240 mg twice daily - PHYSICAL EXAM AT DISCHARGE General Appearance: positive: No acute distress (see progress note for full exam) - LABS Result Diagrams: 06/10/19 04:20 - QUALITY (Female Hip Fx Only) Was patient sent home on osteoporosis medication?: No - FOLLOW UP Follow Up: At [facility] as scheduled with Dr. Spain - TIME SPENT Time Spent in Discharge (Minutes): 20"
[2019-06-10] MEDS ORDERED: IBUPROFEN 800 MG TABLET PO SCH (08:00)
[2019-06-10 08:34] VITALS: BP 138/90
[2019-06-10] MEDS: DOCUSATE SODIUM 100 MG CAPSULE PO SCH (08:43)
== END 2019-06-10 09:33 | disposition home or self-care (01) | DRG 743 ==
LOC: MS3 06:12
PROVIDERS: ADMIT Obstetrics & Gynecology; ATTEND Obstetrics & Gynecology
PROC: 0UT97ZZ Resection of Uterus, Via Natural or Artificial Opening (ICD-10-PCS; principal; 2019-06-09 07:30)
DX: N94.6 Dysmenorrhea, unspecified (principal); N92.0 Excessive and frequent menstruation with regular cycle; E28.2 Polycystic ovarian syndrome; G89.29 Other chronic pain; M54.5 Low back pain; J45.40 Moderate persistent asthma, uncomplicated; Z86.2 Personal history of diseases of the blood and blood-forming organs and certain disorders involving the immune mechanism; Z79.3 Long term (current) use of hormonal contraceptives; Z79.899 Other long term (current) drug therapy; Z87.891 Personal history of nicotine dependence
CPT/HCPCS: 36415; 81001; 85025; 87086